=== PATIENT | female | born 1985 | race Caucasian/White ===

== ENCOUNTER 2017-06-25 07:23 | Observation (INO) | payer OTHER ==
--- NOTE | 2017-06-24 17:58 | PDHPUP ---
History & Physical Update H&P update statement: This history and physical update is based on an assessment of the patient which was completed after admission or registration (within 24 hours), but prior to the surgery/procedure.
[~2017-06-25 07:23] MED LIST: DEXAMETHASONE 10 MG/ML VIAL IVP ONE; ceFAZolin 2 GM/SWFI 2 GM/20 ML SYR IVP ONE
[2017-06-25] MEDS ORDERED: LIDOCAINE 1% 300 MG/30 ML SDV ONE (07:27)
[2017-06-25] MEDS ORDERED: BACITRACIN ZINC 14.2 GM OINTTUBE TP ONE (07:28)
[2017-06-25] MEDS ORDERED: MIDAZOLAM 2 MG/2 ML VIAL ONE (08:25)
[2017-06-25] MEDS ORDERED: MIDAZOLAM 2 MG/2 ML VIAL IVP ONE (08:28)
--- NOTE | 2017-06-25 08:29 | PDANEPAE ---
ANE History of Present Illness 31 year old female w/ PMHx of Thryoiditis followed by Graves disease presents for total thyroidectomy. ANE Past Medical History - Cardiovascular History Hx Hypertension: No Hx Arrhythmias: No Hx Chest Pain: No Hx Coronary Artery / Peripheral Vascular Disease: No Hx CHF / Valvular Disease: No Hx Palpitations: Yes Cardiovascular History Comment: secondary to Hyperthyroid - Pulmonary History Hx COPD: No Hx Asthma/Reactive Airway Disease: No Hx Recent Upper Respiratory Infection: No Hx Oxygen in Use at Home: No Hx Sleep Apnea: No Sleep Apnea Screening Result - Last Documented: Negative - Neurologic History Hx Cerebrovascular Accident: No Hx Seizures: No Hx Dementia: No Neurologic History Comment: Hx migraines - Endocrine History Hx Diabetes: No Hypothyroid: Yes Hyperthyroid: Yes Endocrine History Comment: Thyroiditis followed by Graves - Renal History Hx Renal Disorders: No - Liver History Hx Hepatic Disorders: No - Neurological & Psychiatric Hx Hx Neurological and Psychiatric Disorders: No - Cancer History Hx Cancer: No - Congenital Disorder History Hx Congenital Disorders: No - GI History GERD: mild Hx Gastrointestinal Disorders: Yes Gastrointestinal History Comment: GERD. Diverticulitis 2017 - Other Health History Other Health History: TMD bilat, left TMJ arthritis. lasix OD. hx anemia - Chronic Pain History Chronic Pain: No - Surgical History Prior Surgeries: sleeve gastrectomy 2013. wisdom teeth 2008 ANE Review of Systems Review of systems is: negative Review of Systems: - Exercise capacity Exercise capacity: >=4 METS METS (RN): 4 METS ANE Patient History - Allergies Allergies/Adverse Reactions: No Known Allergies Allergy (Unverified 06/04/17 10:33) - Home Medications Home medications: home medication list seen and reviewed Home Medications: Cyclobenzaprine [Flexeril 10 MG (*)] 10 mg PO DAILY PRN 06/04/17 [Last Taken 02/07] Dicyclomine [Bentyl 20 MG (*)] 20 mg PO DAILY PRN 06/04/17 [Last Taken Unknown] Ergocalciferol [Vitamin D2 (*)] 50,000 unit PO SA 06/04/17 [Last Taken 06/19/17] Lansoprazole [Prevacid] 30 mg PO DAILY 06/04/17 [Last Taken 06/24/17 14:00] Methimazole 10 - 20 mg PO DAILY 06/04/17 [Last Taken 06/24/17 10:30] Multivitamins [Multivitamin (*)] 1 each PO DAILY 06/04/17 [Last Taken 06/11/17] Propranolol HCl [Inderal 10mg (*)] 5 - 25 mg PO DAILY PRN 06/04/17 [Last Taken Unknown] Propranolol Sr [Inderal LA 80mg (*)] 80 mg PO DAILY PRN 06/04/17 [Last Taken Unknown] traMADol [Ultram 50 mg (*)] 50 mg PO DAILY PRN 06/04/17 [Last Taken 06/23/17] - NPO status NPO Status: no food or drink >8 hours - Anes Hx Anes Hx: no prior problems - Smoking Hx Smoking Status: Never smoked Marijuana use: No - Alcohol Use Alcohol Use: Rarely - Family Anes Hx Family Anes Hx: neg - N/A Family Hx Anesthesia Complications: none ANE Labs/Vital Signs - Vital Signs Vital Signs: reviewed preoperatively; see RN documention for details Height: 165.1 cm Weight: 67.132 kg ANE Physical Exam - Airway Neck exam: FROM Mallampati Score: Class 3 Mouth exam: small mouth opening - Pulmonary Pulmonary: no respiratory distress - Cardiovascular Cardiovascular: regular rate and rhythym - ASA Status ASA Status: III (Small mouth opening limited by TMJ) ANE Anesthesia Plan Anesthesia Plan: general endotracheal anesthesia Total IV Anesthesia: No
[2017-06-25] MEDS ORDERED: DEXAMETHASONE 10 MG/ML VIAL IVP ONE (08:30)
[2017-06-25] MEDS ORDERED: ceFAZolin 2 GM/SWFI 2 GM/20 ML SYR IVP ONE (08:30)
[2017-06-25] MEDS ORDERED: PROPOFOL 200 MG/20 ML VIAL ONE (08:31)
[2017-06-25] MEDS ORDERED: fentaNYL 100 MCG/2 ML INJ ONE ×3 (08:31→11:15)
[2017-06-25] MEDS ORDERED: LIDOCAINE 2% 5 ML SDV ONE (08:31)
[2017-06-25] MEDS ORDERED: ROCURONIUM 50 MG/5 ML VIAL ONE ×3 (08:31→10:00)
[2017-06-25] MEDS ORDERED: DEXAMETHASONE 4 MG/ML VIAL ONE (09:06)
[2017-06-25] MEDS ORDERED: ONDANSETRON 4 MG/2 ML VIAL ONE (09:06)
[2017-06-25] MEDS ORDERED: HYDROCODONE/APAP 5/325 TAB PO PRN (09:16)
[2017-06-25] MEDS ORDERED: fentaNYL 100 MCG/2 ML INJ IVP PRN (09:16)
[2017-06-25] MEDS ORDERED: NALOXONE HCL 0.4 MG/ML INJ IVP PRN (09:16)
[2017-06-25] MEDS ORDERED: ONDANSETRON 4 MG/2 ML VIAL IVP PRN ×2 (09:16→11:08)
[2017-06-25] MEDS ORDERED: LR 500 ML IV PRN (09:16)
[2017-06-25] MEDS ORDERED: SUGAMMADEX SODIUM 200 MG/2 ML VIAL IVP ONE (09:23)
[2017-06-25] MEDS ORDERED: HYDROmorphone HCL/NS/PF 0.4 MG/2 ML SYR IVP PRN (09:27)
--- NOTE | 2017-06-25 11:12 | POSTOPPROG ---
Post Op Note Date of Operation: 06/25/17 Surgeon: Jerardo Ha Consumer Safety Officer: Jeanne Terry MD Pre-op Diagnosis: Hyperthyroidism, Graves disease, Hashimotos disease Post-op Diagnosis: same Indication: Difficult to control thyroid disease Procedure: total thyroidectomy Findings: Both RLN ID and preserved Inf/Abcess present in the surg proc area at time of surgery?: No Depth: Organ Space EBL: 50-100 Complications: none
[2017-06-25] MEDS ORDERED: HYDROmorphONE/DILAUDID 1 MG/ML INJ ONE (11:32)
[2017-06-25] MEDS: HYDROmorphONE/DILAUDID 1 MG/ML INJ IVP PRN ×2 (11:33→11:43)
[2017-06-25] MEDS: D5W 1/2 NS W/ 20 KCl/L 1,000 ML IV SCH (13:36)
[2017-06-25] MEDS: OXYCODONE/APAP 5/325 TAB PO PRN ×3 (14:17→22:21)
--- NOTE | 2017-06-25 18:22 | POSTANESTH ---
Post Anesthetic Evaluation Cardiovascular Status: Normal, Stable, Similar to Pre-Op Cond Respiratory Status: Normal, Stable, Similar to Pre-op Cond. Level of Consciousness/Mental Status: Can Participate in Eval, Alert and Oriented Pain Control: Adequate, Prn Tx Ordered Nausea/Vomiting Control: Adequate, Prn Tx Ordered Complications Possibly Related to Anesthesia: None Noted
--- NOTE | 2017-06-25 20:07 | SOAPPROG ---
SOAP Progress Note Assessment/Plan: Assessment: Pt doing well. No sxs of low CA. Reassured her that the blue on her skin was the skin prep. Neck flat. Calcium was WNL. Plan: Expect discharge in the morning. 06/25/17 20:04 06/25/17 20:05 Subjective: "MY skin is bruised" Objective: Vital Signs Temp Pulse Resp BP Pulse Ox 36.8 C 102 H 16 125/78 H 94 06/25/17 19:00 06/25/17 19:00 06/25/17 19:00 06/25/17 19:00 06/25/17 19:00 06/24/17 06/25/17 06/26/17 05:59 05:59 05:59 Intake Total 1320 Output Total 35 Balance 1285 Neck flat. The blue is the skin prep and is normal. ICD10 Worksheet Patient Problems: Problems Problem Status Onset Graves disease Acute Thyroiditis, chronic Acute - ICD10 Problem Qualifiers (1) Thyroiditis, chronic (2) Graves disease
--- NOTE | 2017-06-25 20:31 | GOP ---
[f rep st] OPERATIVE REPORT DATE OF OPERATION: SURGEON: Jerardo Ha MD BADGER DISTILLER OPERATOR: Charanjit Terry MD. ANESTHESIA: General. 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 PROCEDURE PERFORMED: Total thyroidectomy. FINDINGS: Both recurrent laryngeal nerves were identified and preserved. I saw the 2 left parathyro id glands but did not localize the parathyroid glands on the right side. SPECIMENS: Thyroid gland. ESTIMATED BLOOD LOSS: Approximately 50 mL. INDICATIONS: The patient is a 31-year-old woman with [id number] thyroid disease. 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 The decision was made to proceed with a total thyroidectomy in hopes of better controlling her thyroid difficulties. DESCRIPTION OF PROCEDURE: Patient was taken the OR, positively identified, placed on monitors and ge neral anesthesia was induced. The patient was then prepped and draped in normal fashion. The prep w as allowed to dry for the appropriate period of time. She was then draped and the incision was marke d along the anterior neck skin crease and infiltrated with 3 cc of 1% lidocaine with 1:100,000 epinep hrine. The skin was then sharply incised. Dissection was then carried down through the platysma. S uperior and inferior subplatysmal flaps were then raised and secured with stay sutures. These strap muscles were then divided in the midline and elevated off the thyroid gland. The superior thyroid pe dicle on the left side was isolated, clamped, cut, and ligated with 2-0 silk. The dissection was the n carried along the thyroid capsule, rotating the thyroid medially, tying off the middle thyroid vein with 3-0 silk. I was then able to identify the recurrent laryngeal nerve and divide ahumada's ligamen t. The thyroid gland was rotated off the trachea. The inferior vascular pedicle was clamped, ligate d with a 2-0 silk suture. Attention was now turned to the right side of the thyroid gland and the same procedure was done, isol ating the superior vascular pedicle in 2 separate pieces, clamping, dividing, and then tying these of f with suture ligatures. The middle thyroid vein was divided. The thyroid gland rotated medially as I dissected along the thyroid capsule. The recurrent laryngeal nerve was identified and preserved. Following this, I divided the ahumada's ligament in the inferior vascular pedicle. The thyroid gland was then lifted off the trachea. The pyramidal lobe was then excised along with the thyroid gland. It was oriented for the pathologist and sent for pathologic evaluation. The wound was then irrigated with sterile saline. Hemostasis was assured. A 10-British drain was the n placed through a separate stab incision and secured with a drain stitch. The wound was then closed with interrupted 3-0 Vicryl, 4-0 Monocryl and a running 5-0 Prolene suture followed by a pressure dr mills. The patient was then taken to postop care in good condition, having tolerated the procedure well. COMPLICATIONS: None. /[id number]/MODL
--- NOTE | 2017-06-25 20:31 | GOP ---
[f rep st] OPERATIVE REPORT DATE OF OPERATION: SURGEON: Jerardo Ha MD SLIP CASTER: Charanjit Terry MD. ANESTHESIA: General. 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 PROCEDURE PERFORMED: Total thyroidectomy. FINDINGS: Both recurrent laryngeal nerves were identified and preserved. I saw the 2 left parathyro id glands but did not localize the parathyroid glands on the right side. SPECIMENS: Thyroid gland. ESTIMATED BLOOD LOSS: Approximately 50 mL. INDICATIONS: The patient is a 31-year-old woman with [id number] thyroid disease. 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 The decision was made to proceed with a total thyroidectomy in hopes of better controlling her thyroid difficulties. DESCRIPTION OF PROCEDURE: Patient was taken the OR, positively identified, placed on monitors and ge neral anesthesia was induced. The patient was then prepped and draped in normal fashion. The prep w as allowed to dry for the appropriate period of time. She was then draped and the incision was marke d along the anterior neck skin crease and infiltrated with 3 cc of 1% lidocaine with 1:100,000 epinep hrine. The skin was then sharply incised. Dissection was then carried down through the platysma. S uperior and inferior subplatysmal flaps were then raised and secured with stay sutures. These strap muscles were then divided in the midline and elevated off the thyroid gland. The superior thyroid pe dicle on the left side was isolated, clamped, cut, and ligated with 2-0 silk. The dissection was the n carried along the thyroid capsule, rotating the thyroid medially, tying off the middle thyroid vein with 3-0 silk. I was then able to identify the recurrent laryngeal nerve and divide ahumada's ligamen t. The thyroid gland was rotated off the trachea. The inferior vascular pedicle was clamped, ligate d with a 2-0 silk suture. Attention was now turned to the right side of the thyroid gland and the same procedure was done, isol ating the superior vascular pedicle in 2 separate pieces, clamping, dividing, and then tying these of f with suture ligatures. The middle thyroid vein was divided. The thyroid gland rotated medially as I dissected along the thyroid capsule. The recurrent laryngeal nerve was identified and preserved. Following this, I divided the ahumada's ligament in the inferior vascular pedicle. The thyroid gland was then lifted off the trachea. The pyramidal lobe was then excised along with the thyroid gland. It was oriented for the pathologist and sent for pathologic evaluation. The wound was then irrigated with sterile saline. Hemostasis was assured. A 10-[place] drain was the n placed through a separate stab incision and secured with a drain stitch. The wound was then closed with interrupted 3-0 Vicryl, 4-0 Monocryl and a running 5-0 Prolene suture followed by a pressure dr mills. The patient was then taken to postop care in good condition, having tolerated the procedure well. COMPLICATIONS: None. /[id number]/MODL
--- NOTE | 2017-06-25 20:31 | GOP ---
[f rep st] OPERATIVE REPORT DATE OF OPERATION: SURGEON: Jerardo Ha MD DISPATCH CLERK: Charanjit Terry MD. ANESTHESIA: General. 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 PROCEDURE PERFORMED: Total thyroidectomy. FINDINGS: Both recurrent laryngeal nerves were identified and preserved. I saw the 2 left parathyro id glands but did not localize the parathyroid glands on the right side. SPECIMENS: Thyroid gland. ESTIMATED BLOOD LOSS: Approximately 50 mL. INDICATIONS: The patient is a 31-year-old woman with [id number] thyroid disease. She has been trying to manage this with her him manager for a number of years. The decision was made to proceed with a total thyroidectomy in hopes of better controlling her thyroid difficulties. DESCRIPTION OF PROCEDURE: Patient was taken the OR, positively identified, placed on monitors and ge neral anesthesia was induced. The patient was then prepped and draped in normal fashion. The prep w as allowed to dry for the appropriate period of time. She was then draped and the incision was marke d along the anterior neck skin crease and infiltrated with 3 cc of 1% lidocaine with 1:100,000 epinep hrine. The skin was then sharply incised. Dissection was then carried down through the platysma. S uperior and inferior subplatysmal flaps were then raised and secured with stay sutures. These strap muscles were then divided in the midline and elevated off the thyroid gland. The superior thyroid pe dicle on the left side was isolated, clamped, cut, and ligated with 2-0 silk. The dissection was the n carried along the thyroid capsule, rotating the thyroid medially, tying off the middle thyroid vein with 3-0 silk. I was then able to identify the recurrent laryngeal nerve and divide ahumada's ligamen t. The thyroid gland was rotated off the trachea. The inferior vascular pedicle was clamped, ligate d with a 2-0 silk suture. Attention was now turned to the right side of the thyroid gland and the same procedure was done, isol ating the superior vascular pedicle in 2 separate pieces, clamping, dividing, and then tying these of f with suture ligatures. The middle thyroid vein was divided. The thyroid gland rotated medially as I dissected along the thyroid capsule. The recurrent laryngeal nerve was identified and preserved. Following this, I divided the ahumada's ligament in the inferior vascular pedicle. The thyroid gland was then lifted off the trachea. The pyramidal lobe was then excised along with the thyroid gland. It was oriented for the pathologist and sent for pathologic evaluation. The wound was then irrigated with sterile saline. Hemostasis was assured. A 10-[place] drain was the n placed through a separate stab incision and secured with a drain stitch. The wound was then closed with interrupted 3-0 Vicryl, 4-0 Monocryl and a running 5-0 Prolene suture followed by a pressure dr mills. The patient was then taken to postop care in good condition, having tolerated the procedure well. COMPLICATIONS: None. /[id number]/MODL
[2017-06-26 00:32] VITALS: RESP 16
[2017-06-26] MEDS: D5W 1/2 NS W/ 20 KCl/L 1,000 ML IV SCH (00:42)
[2017-06-26] MEDS: OXYCODONE/APAP 5/325 TAB PO PRN ×3 (02:48→10:25)
--- NOTE | 2017-06-26 08:42 | SOAPPROG ---
SOAP Progress Note Assessment/Plan: pt s/p total thyroidectomy. HAd some pain issues last night. I switched her to dilaudid which is working better. No numbness or tingling, voice strong. O:- dressing and drain removed. New dressing placed. Incison c/d/i Ionized ca were 1.13 and 1.19 Plan: Pt s/p totoal thyroid. Doing well. Start Synthroid. Discussed wound care. F/u 5 days. 06/26/17 08:39 Objective: Vital Signs Temp Pulse Resp BP Pulse Ox 36.7 C 64 16 106/61 95 06/26/17 03:27 06/26/17 03:27 06/26/17 03:27 06/26/17 03:27 06/26/17 03:27 06/25/17 06/26/17 06/27/17 05:59 05:59 05:59 Intake Total 2687 Output Total 65 Balance 2622 - Pending Discharge Pending Discharge Within 24 Hours: Yes Pending Discharge Date: 06/27/17 Pending Discharge Time: 11:00 ICD10 Worksheet Patient Problems: Problems Problem Status Onset Graves disease Acute Thyroiditis, chronic Acute
[2017-06-26 09:42] VITALS: BP 118/72; PULSE 80; TEMP 98.2; O2SAT 96
== END 2017-06-26 10:45 | disposition home or self-care (01) ==
LOC: F3N 07:23 → F3E 12:38
PROVIDERS: ADMIT Otolaryngology; ATTEND Otolaryngology
PROC: 0GTK0ZZ Resection of Thyroid Gland, Open Approach (ICD-10-PCS; principal; 2017-06-25 08:30)
PROC: 0GTR0ZZ Resection of Parathyroid Gland, Open Approach (ICD-10-PCS; principal; 2017-06-25 08:30)
DX: E05.00 Thyrotoxicosis with diffuse goiter without thyrotoxic crisis or storm (principal); E06.3 Autoimmune thyroiditis; K21.9 Gastro-esophageal reflux disease without esophagitis; G43.909 Migraine, unspecified, not intractable, without status migrainosus; D64.9 Anemia, unspecified
CPT/HCPCS: 60240; G0378; J0171; J0690; J1100; J1170; J2250; J2405; J2704; J3010